=== PATIENT | male | born 1940 | race Caucasian/White ===

== ENCOUNTER → 2019-07-16 12:11 | Outpatient (CLI) | payer MEDICARE, OTHER, SELFPAY | PROVIDERS: Visit Provider Internal Medicine Cardiovascular Disease | DX: T82.7XXA Infection and inflammatory reaction due to other cardiac and vascular devices, implants and grafts, initial encounter (principal); L03.313 Cellulitis of chest wall | CPT/HCPCS: 36415; 87040; 87070; 87075; 87077; 87147; 87186; 87205 ==